=== PATIENT | female | born 1995 | race Asian ===

== ENCOUNTER 2020-04-12 22:59 | Emergency (ER) | payer OTHER ==
[2020-04-12 23:07] VITALS: BP 122/65; PULSE 97; TEMP 98.5; BMI 25.8
[2020-04-12] MEDS ORDERED: RALTEGRAVIR POTASSIUM 400 MG TAB PO ONE (23:19)
[2020-04-12] MEDS ORDERED: EMTRICITABINE 200MG/TENOFOVIR 300MG PO ONE (23:19)
[2020-04-12] MEDS ORDERED: TETANUS AND DIPHTHERIA TOXOID 0.5 ML DISP.SYRIN IM ONE (23:19)
[2020-04-12] MEDS ORDERED: HIV POST EXPOSURE PROPHYLAXIS KIT PO ONE (23:35)
[2020-04-12] MEDS ORDERED: DIPHTH,PERTUSS(ACELL),TET 0.5 ML DISP.SYRIN IM ONE ×3 (23:40→23:58)
[2020-04-12] MEDS ORDERED: HIV POST EXPOSURE PROPHYLAXIS KIT NR ONE (23:47)
[2020-04-13 00:29] LABS: BASO % 0.5 % (0-2.0); EOS % 1.1 % (0-4.5); HEMATOCRIT 41.2 % (32.4-45.2); HEMOGLOBIN 13.8 GM/dL (10.7-15.3); LYMPH % 32.2 % (8-40); MCH 27.7 pg (25.7-33.7); MCHC 33.4 g/dl (32.0-36.0); MEAN CELL VOLUME 82.8 fl (80-96); MEAN PLT VOLUME 9.6 fl (7.5-11.1); MONO % 5.1 % (3.8-10.2); NEUT % 61.1 % (42.8-82.8); PLATELET COUNT 251 K/MM3 (134-434); RBC 4.98 M/mm3 (3.60-5.2); RDW 15.1 % (11.6-15.6)
[2020-04-13 01:21] LABS: HIV INTERPRETATION NEGATIVE (NEGATIVE)
[2020-04-13 01:40] LABS: POTASSIUM 3.7 mmol/L (3.5-5.1)
[2020-04-13 01:42] LABS: ALBUMIN 4.5 g/dl (3.4-5.0); CALCIUM 9.1 mg/dL (8.5-10.1)
[2020-04-13 01:44] LABS: BLOOD UREA NITROGEN 17.7 mg/dL (7-18)
[2020-04-13 01:46] LABS: CREATININE 0.8 mg/dL (0.55-1.3)
[2020-04-13 01:47] LABS: PHOSPHOROUS 3.5 mg/dL (2.5-4.9); TOT PROT 8.3 g/dl (6.4-8.2)
[2020-04-13 01:48] LABS: BILIRUBIN,TOTAL 0.9 mg/dL (0.2-1)
[2020-04-13 01:51] LABS: URIC ACID 3.9 mg/dL (2.6-7.2)
== END 2020-04-13 00:03 | disposition home or self-care (01) ==
LOC: JER 22:59
PROC: 3E0234Z Introduction of Serum, Toxoid and Vaccine into Muscle, Percutaneous Approach (ICD-10-PCS; principal; 2020-04-12)
DX: S61.239A Puncture wound without foreign body of unspecified finger without damage to nail, initial encounter (principal)
CPT/HCPCS: 36415; 80053; 82465; 83615; 84100; 84478; 84550; 84702; 84703; 85025; 86317; 86704; 86706; 86803; 87340; 87389; 99284-25